=== PATIENT | male | born 1980 | race Caucasian/White ===

== ENCOUNTER 2020-02-13 05:43 | Emergency (ER) | payer OTHER ==
[~2020-02-13] VITALS: Ht 188 cm; Wt 97.5 kg
--- NOTE | 2020-02-13 05:57 | NUR ---
PT OCTAVIANO FROM HOME FOR PSYCH EVAL. PT WAS PLACED ON A 5150 HOLD BY PD. PT DENIES SI/HI UPON ARRIVAL. PT AAOX4, VSS, RESPIRATIONS EVEN AND UNLABORED ON RA W/ NAD NOTED. PT CHANGED INTO GOWN AND BELONGINGS PLACED TO LOCKER. SAFETY PRECAUTIONS IMPLEMENTED
--- NOTE | 2020-02-13 05:59 | NUR ---
DR JOHANSEN AT BEDSIDE FOR EVAL
[2020-02-13 06:57] LABS: APPEARANCE,URINE CLEAR (CLEAR); BILIRUBIN,URINE NEGATIVE (NEGATIVE); BLOOD, URINE TRACE-INTA Ery/uL (NEGATIVE); COLOR,URINE YELLOW (YELLOW); LEUKOCYTE ESTERASE ,URINE NEGATIVE (NEGATIVE); NITRITE, URINE NEGATIVE (NEGATIVE); PH,URINE 5.5 (5.0-8.0); PROTEIN,URINE NEGATIVE (NEGATIVE); UGLUCOSE NEGATIVE (NEGATIVE); UROBILINOGEN,URINE 0.2 EU/dL (0.2)
[2020-02-13 07:03] LABS: BASOPHILS % (AUTO) 0.5 % (0.0-2.0); EOSINOPHILS % (AUTO) 2.9 % (0.0-6.0); HEMATOCRIT 42 % (39-51); HEMOGLOBIN 13.9 g/dL (13.5-17.5); LYMPHOCYTES # (AUTO) 1.5 /CMM (0.8-4.8); LYMPHOCYTES % (AUTO) 27.5 % (20.0-44.0); MEAN CORPUSCULAR HGB CONC 33 g/dl (31.0-36.0); MEAN CORPUSCULAR VOLUME 90 fL (80-96); MONOCYTES # (AUTO) 0.4 /CMM (0.1-1.30); MONOCYTES % (AUTO) 6.5 % (2.0-12.0); NEUTROPHILS # (AUTO) 3.4 /CMM (1.8-8.9); NEUTROPHILS % (AUTO) 62.6 % (43.0-81.0); PLATELET COUNT (AUTO) 234 /CMM (150-450); RED BLOOD CELL COUNT(AUTO) 4.67 MIL/uL (4.5-6.0); WHITE BLOOD COUNT (AUTO) 5.4 K/uL (4.3-11.0)
[2020-02-13 07:16] LABS: ALBUMIN 3.7 g/dL (3.4-5.0); BILIRUBIN,DIRECT 0.1 mg/dL (0.0-0.2); BILIRUBIN,TOTAL 0.2 mg/dL (0.2-1.0); CALCIUM, SERUM 8.5 mg/dL (8.5-10.1); POTASSIUM 3.7 mmol/L (3.5-5.1); TOTAL PROTEIN, SERUM 7.1 g/dL (6.4-8.2)
[2020-02-13 07:32] LABS: BACTERIA,URINE Rare /HPF (None Seen); RBC,URINE 0-2 /HPF (0-2); SQUAMOUS EPITHELIAL CELL,UR Rare /HPF (None Seen); WBC,URINE 0-2 /HPF (0-3)
--- NOTE | 2020-02-13 08:56 | NUR ---
FOOD PROVIDED. TOLERATED WELL.
--- NOTE | 2020-02-13 10:12 | NUR ---
PATIENT AWAKE, IN BED. SPEAKING WITH THROUGH CELLULAR PHONE. HOOKED TO MONITOR, WILL CONTINUE TO MONITOR ACCORDINGLY. KEPT SAFE, WARM AND COMFORTABLE.
--- NOTE | 2020-02-13 12:05 | NUR ---
Patient provided verbal consent to speak with Didi . SW called Didi per Didi patient has had these outburts before. Per Didi, last night was one of the scariest for her and that is why she called police and asked them to place patient on a 5150 hold. Per Didi, she would like patient to have further psychiatric evaluation conducted. SW to provide this information to Location Director PARMINDER Michel as she will be coming to evaluate this patient.
--- NOTE | 2020-02-13 13:12 | NUR ---
SITE CONTROLLER KASEY AT BEDSIDE
--- NOTE | 2020-02-13 13:13 | NUR ---
11am SW met with the patient at bedside. Patient is now alert and oriented x4. Patient was on phone prior to this SW assessment. Per MD note, Patient was place on a 5150 hold per [employer] because apparently patient expressed despondent thoughts. Patient confirmed information on face sheet including date of , social security number, and address. Patient reports that he lives in the home with his and daughter whom he shares custody with daughters mother. Per patient, he had an anger outburst because daughters mother did not allow him to see his daughter. Patient reports that he went into his daughters room in the home and began to cry and kicked in frustration a toy across the room. Patient began to cry while he was explaining the situation to this SW. Patient had tears flowing from his face and patient covered his face with both hands in frustration. After patient calmed, he continued to speak to this SW. Per patient, this scared patients Didi. Per patient, Didi ran outside because patient believes he left something from patients gun out of the safe. Per patient, this is when he followed his outside to the yard with hands up in the air trying to prove he did not have a gun in his hand. Patient does not report mental health diagnosis. Patient denies suicidal and homicidal ideation. Patient denies auditory and visual hallucinations. Patient reports no alcohol use. Patient admits to marijuana use occasionally, when I am stressed. Patient denies other drug or cigarette use. Patient provided verbal consent for this SW to speak to and for to provide further information regarding this patient. [facility] to further evaluate the patient.
--- NOTE | 2020-02-13 13:43 | NUR ---
FOOD TRAY PROVIDED, PATIENT TOLERATED PO WELL.
--- NOTE | 2020-02-13 14:09 | NUR ---
[employer] CHIEF DRAFTER BROKE THE 5150 HOLD. PATIENT IS OK TO BE DISCHARGED. AWARE.
--- NOTE | 2020-02-13 15:01 | NUR ---
PATIENT DENIES SI/HI AT THIS TIME.
--- NOTE | 2020-02-13 15:22 | NUR ---
Patient discharged to home with brother Raleigh Oquendo ([phone]) in stable condition. Written and verbal after care instructions given. Patient verbalizes understanding of instruction.
[2020-02-13 15:24] VITALS: BP 118/76
== END 2020-02-13 15:24 | disposition home or self-care (01) ==
LOC: ER 05:45
DX: R45.851 Suicidal ideations (principal); Z91.018 Allergy to other foods
CPT/HCPCS: 36415; 80048-TC; 80076-TC; 81000-TC; 85025-TC; G0480